=== PATIENT | female | born 1955 | race Caucasian/White ===

== ENCOUNTER 2016-10-12 14:14 | Emergency (ER) | payer OTHER ==
[~2016-10-12] VITALS: Ht 165.1 cm; Wt 65.8 kg
[2016-10-12] MEDS ORDERED: CLARITIN10 MG PO (15:21)
[2016-10-12] MEDS ORDERED: IBUPROFEN 600600 M1 PO (15:59)
[2016-10-12 16:15] VITALS: BP 147/92
== END 2016-10-12 16:24 | disposition home or self-care (01) ==
LOC: ER 14:14
DX: S80.02XA Contusion of left knee, initial encounter (principal); W18.39XA Other fall on same level, initial encounter; Y93.89 Activity, other specified; Y92.89 Other specified places as the place of occurrence of the external cause; Y99.8 Other external cause status